=== PATIENT | female | born 1960 | race African-American/Black ===

== ENCOUNTER → 2016-10-03 | Day surgery (SDC) | payer OTHER ==
[~2016-10-03] MED LIST: ALENDRONATE SOD35 MG PO; DYAZIDE 371 CAP 37.5; DYRENIUM50 MG; FLEXERIL10 MG PO; MULTI-DAY VITA1 EACH; TYLENOL #3 PO; ZOCOR PO; [UNRECOGNIZED DRUG - REMARK]
--- NOTE | ~2016-10-03 | OR ---
Unit #: [id number] #: [id number] Patient: AIDEN PEREA [id number] [address] [id number] MR#: [id number] NAME: AIDEN PEREA ROOM: Date of Procedure: 10/03/2016 Admission Date: 10/03/2016 Surgeon: Mal Sabillon M.D. : 1960 Attending Physician: Mal Sabillon M.D. Primary Care Physician: Suman Brewer M.D. OPERATIVE REPORT PREOPERATIVE DIAGNOSIS Colorectal cancer screening in an average-risk patient. PROCEDURES PERFORMED Colonoscopy and polypectomy. POSTOPERATIVE DIAGNOSES 1. Single sessile polyp in the mid descending colon. This was removed using snare polypectomy. The polyp was about 5 mm in size. 2. Rest of the examination up to cecum and terminal ileum was normal. The quality of the prep was excellent. RECOMMENDATIONS Follow up results of polyp histology and consider repeat colonoscopy in 5 years. SEDATION USED MAC. DESCRIPTION OF PROCEDURE Following detailed explanation of the potential risks and complications of a colonoscopy, namely perforation, bleeding, and complications related to sedation, the patient was brought to GI lab and laid in the left lateral decubitus position. A digital rectal examination was performed, which was normal. Lubricated tip of the Olympus video colonoscope was inserted through the anus and advanced under direct vision. The scope was advanced and passed up to sigmoid into descending colon. No diverticula were noted in this area. The scope tip was then navigated all the way up to cecum with visualization of the ileocecal valve and the appendiceal orifice. Preparation was excellent with good visualization and photodocumentation was obtained. Last several inches of terminal ileum also visualized after intubation of the ileocecal valve and appeared normal. Successive segments of the colonic mucosa were examined upon withdrawal. Single sessile polyp was noted in the mid descending colon. The latter was removed using snare polypectomy. Polyps were 5 to 6 mm in size and was retrieved and sent for histology. No additional polyps were noted. The patient did not have any diverticulosis nor any hemorrhoids. The scope was then withdrawn. The patient returned to the recovery area. She tolerated the procedure without any postprocedure complications. Dictated by... Unit #: [id number] #: [id number] Patient: AIDEN PEREA Obinna Puri TD: 10/04/2016 01:43 JOB #: [id number] OPERATIVE REPORT Page 1 of 1 X Mal Sabillon MD PROCEDURE OPERATIVE NOTE
== END | disposition home or self-care (01) ==
LOC: COPS 12:41
DX: Z12.11 Encounter for screening for malignant neoplasm of colon (principal); D12.4 Benign neoplasm of descending colon; E78.5 Hyperlipidemia, unspecified; Z79.899 Other long term (current) drug therapy; Z90.710 Acquired absence of both cervix and uterus; Z87.891 Personal history of nicotine dependence
CPT/HCPCS: 88305